=== PATIENT | female | born 1955 | race Caucasian/White ===

== ENCOUNTER 2023-12-03 20:10 | Emergency (ER) | payer OTHER ==
[2023-12-03 20:21] VITALS: BP 159/91; PULSE 89; RESP 18; TEMP 97.6; BMI 32.2
[2023-12-03] MEDS ORDERED: METOCLOPRAMIDE HCL INJECTION 10 MG/2 ML VIAL ONE (20:25)
[2023-12-03] MEDS: METOCLOPRAMIDE HCL INJECTION 10 MG/2 ML VIAL IM ONE (20:45)
[2023-12-03] MEDS ORDERED: IBUPROFEN 600 MG TABLET (FP) PO ONE (22:19)
[2023-12-03] MEDS ORDERED: METHOCARBAMOL 500 MG TABLET ONE (22:19)
[2023-12-03] MEDS ORDERED: LIDOCAINE 5% TOPICAL PATCH ONE (22:19)
[2023-12-03] MEDS: LIDOCAINE 5% TOPICAL PATCH TP ONE (22:22)
[2023-12-03] MEDS: METHOCARBAMOL 500 MG TABLET PO ONE (22:23)
[2023-12-03] MEDS: IBUPROFEN 600 MG TABLET (FP) PO ONE (22:23)
[2023-12-03] MEDS: LIDOCAINE PATCH REMOVAL MC SCH (22:24)
[2023-12-03] MEDS ORDERED: DEXAMETHASONE SOD PHOSPHATE 10 MG/1 ML VIAL ONE (22:43)
[2023-12-03] MEDS ORDERED: LIDOCAINE HCL 2% (20ML MULTI-DOSE VIAL) ONE (22:43)
[2023-12-03] MEDS: LIDOCAINE HCL 2% (50ML VIAL) INF ONE (22:51)
== END 2023-12-03 22:56 | disposition home or self-care (01) ==
LOC: FER 20:10
PROC: 3E023GC Introduction of Other Therapeutic Substance into Muscle, Percutaneous Approach (ICD-10-PCS; principal; 2023-12-03)
PROC: 3E023GC Introduction of Other Therapeutic Substance into Muscle, Percutaneous Approach (ICD-10-PCS; 2023-12-03)
DX: G24.3 Spasmodic torticollis (principal); R51.9 Headache, unspecified; M54.2 Cervicalgia
CPT/HCPCS: 70450-TC; 99284-25